=== PATIENT | male | born 1965 | race Native Hawaiian/Other Pacific Islander ===

== ENCOUNTER 2016-04-28 12:30 | Outpatient (CLI) | payer BC | END 2016-04-28 20:11 | disposition home or self-care (01) | LOC: RAD 12:30 | DX: M25.512 Pain in left shoulder (principal) ==

== ENCOUNTER 2021-07-16 16:16 | Outpatient (CLI) | payer OTHER | END 2021-07-16 19:51 | disposition home or self-care (01) | LOC: CT 16:16 | PROVIDERS: ATTEND Nurse Practitioner Family | DX: S20.212A Contusion of left front wall of thorax, initial encounter (principal); R07.81 Pleurodynia; R31.0 Gross hematuria; Y92.9 Unspecified place or not applicable ==

== ENCOUNTER 2021-07-17 16:20 | Outpatient (CLI) | payer OTHER ==
[2021-07-17 16:31] LABS: PLATELET COUNT 239 K/uL (142-355)
[2021-07-17 16:42] LABS: POTASSIUM 4.1 mmol/L (3.6-5.2)
== END 2021-07-17 19:23 | disposition home or self-care (01) ==
LOC: LABW 16:20
PROVIDERS: ATTEND Nurse Practitioner Family
DX: N17.9 Acute kidney failure, unspecified (principal); R31.9 Hematuria, unspecified
CPT/HCPCS: 36415; 80053; 82550; 85027